=== PATIENT | female | born 1985 | race Caucasian/White ===

== ENCOUNTER 2017-05-09 07:58 | Inpatient (IN) | payer OTHER ==
[2017-05-07 13:27] VITALS: BMI 46.6
[~2017-05-09 07:58] MED LIST: BUPIVACAINE HCL/PF 0.5% (5MG/ML) 10 ML VIAL IJ ONE
[2017-05-09] MEDS ORDERED: DEXAMETHASONE SOD PHOSPHATE/PF 10 MG/ML SDV ONE (09:32)
[2017-05-09] MEDS ORDERED: BUPIVACAINE HCL/PF 0.25% (2.5MG/ML) 10 ML VIAL ONE (09:33)
[2017-05-09] MEDS ORDERED: MIDAZOLAM HCL 2 MG/2 ML SINGLE DOSE VIAL ONE ×2 (09:34)
[2017-05-09 10:19] LABS: HEMATOCRIT 39.1 % (32.4-45.2); HEMOGLOBIN 13.1 GM/dL (10.7-15.3); MCH 29.4 pg (25.7-33.7); MCHC 33.5 g/dl (32.0-36.0); MEAN CELL VOLUME 87.7 fl (80-96); MEAN PLT VOLUME 8.6 fl (7.5-11.1); PLATELET COUNT 296 K/MM3 (134-434); RBC 4.46 M/mm3 (3.60-5.2); WHITE BLOOD COUNT 9.8 K/mm3 (4.0-10.0)
[2017-05-09] MEDS ORDERED: fentaNYL CITRATE 250 MCG/5 ML VIAL ONE (10:20)
[2017-05-09] MEDS ORDERED: ROCURONIUM BROMIDE 50 MG/5 ML VIAL ONE ×2 (10:20)
--- NOTE | 2017-05-09 11:09 | HP ---
Admitting History and Physical - Admission Chief Complaint: Morbid obesity History Source: Patient Limitations to Obtaining History: No Limitations - Past Medical History ...LMP: 04/15/17 ...: ( in mar 2017) - Past Surgical History Past Surgical History: Yes: Cholecystectomy, - Smoking History Smoking history: Current every day smoker Have you smoked in the past 12 months: Yes Aproximately how many cigarettes per day: 3 - Alcohol/Substance Use Hx Alcohol Use: Yes (rarely) Home Medications - Allergies Allergies/Adverse Reactions: Allergies Allergy/AdvReac Type Severity Reaction Status Date / Time No Known Allergies Allergy Verified 05/07/17 13:29 - Home Medications Home Medications: Ambulatory Orders Acetaminophen W/ Codeine #3 [Tylenol # 3 -] 1 tab PO PRN PRN 05/07/17 Alprazolam [Xanax] 0.5 mg PO PRN PRN 05/07/17 Ascorbic Acid [Vitamin C] 500 mg PO DAILY 05/07/17 Quetiapine Fumarate [Seroquel -] 200 mg PO HS 05/07/17 Zolpidem Tartrate [Ambien] 10 mg PO HS 05/07/17 Family Disease History - Family Disease History Family History: Unremarkable Review of Systems - Review of Systems Constitutional: denies: Chills, Fever HENT: reports: No Symptoms Neck: reports: No Symptoms Cardiovascular: reports: No Symptoms Respiratory: reports: No Symptoms Gastrointestinal: reports: No Symptoms Physical Examination Vital Signs: Vital Signs Temperature 98.3 F 05/09/17 08:46 Pulse Rate 92 H 05/09/17 09:37 Respiratory Rate 16 05/09/17 08:46 Blood Pressure 124/71 05/09/17 08:46 O2 Sat by Pulse Oximetry (%) 96 05/09/17 08:42 Constitutional: Yes: Calm Neck: Yes: WNL Cardiovascular: Yes: Regular Rate and Rhythm Respiratory: Yes: Regular Gastrointestinal: Yes: Soft, Abdomen, Obese Neurological: Yes: Alert, Oriented Labs: CBC, BMP 05/09/17 09:58 Problem List - Problems (1) Morbid (severe) obesity due to excess calories Code(s): E66.01 - MORBID (SEVERE) OBESITY DUE TO EXCESS CALORIES (2) Adult BMI 45.0-49.9 kg/sq m Code(s): Z68.42 - BODY MASS INDEX (BMI) 45.0-49.9, ADULT Assessment/Plan Laparoscopic possible open vertical sleeve gastrectomy, possible liver biopsy, EGD
[2017-05-09] MEDS ORDERED: LIDOCAINE HCL/PF 2% SDV 5ML VIAL ONE (11:14)
[2017-05-09] MEDS ORDERED: ceFAZolin SODIUM 1 GM VIAL ONE (11:29)
[2017-05-09] MEDS ORDERED: SODIUM CHLORIDE 0.9% P/F 10 ML VIAL IJ ONE (11:29)
[2017-05-09] MEDS ORDERED: ceFAZolin SODIUM 1 GM VIAL IVPB ONE (11:30)
[2017-05-09] MEDS ORDERED: ONDANSETRON 4 MG/2 ML VIAL IVPUSH PRN (12:36)
[2017-05-09] MEDS ORDERED: PROMETHAZINE HCL 25 MG/1 ML VIAL IVPUSH PRN (12:36)
[2017-05-09] MEDS ORDERED: ACETAMINOPHEN 1000 MG/100 ML VIAL (NON FORMULARY) IVPB ONE (12:37)
[2017-05-09] MEDS ORDERED: LACTATED RINGERS SOLUTION 1,000 ML IV SCH (12:45)
[2017-05-09] MEDS ORDERED: BUPIVACAINE HCL/PF 0.5% (5MG/ML) 10 ML VIAL IJ ONE (12:46)
--- NOTE | 2017-05-09 12:53 | OP ---
Operative Note - Note: Operative Date: 05/09/17 Pre-Operative Diagnosis: Morbid obesity Operation: Laparoscopic vertical sleeve gastrectomy, wedge liver biopsy, EGD Post-Operative Diagnosis: Other (Morbid obesity, Hepatomegaly) Surgeon: Imtiaz Cooper Plastic And Reconstructive Surgeon: Bharat Dykes Anesthesia: General Specimens Removed: Greater curvature of stomach. Wedge liver biopsy Estimated Blood Loss (mls): 30 Drains & Tubes with Location: 36 fr Bougie Operative Report Dictated: Yes
--- NOTE | 2017-05-09 13:14 | SPEC ---
DATE OF OPERATION: 05/09/2017 SURGEON: Imtiaz Cooper MD ALLERGIST/IMMUNOLOGIST: Bharat Dykes MD PREOPERATIVE DIAGNOSIS: 1. Morbid obesity. 2. BMI (body mass index) 46.7. POSTOPERATIVE DIAGNOSIS: 1. Morbid obesity. 2. BMI (body mass index) 46.7. 3. Hepatomegaly. PROCEDURE: 1. Laparoscopic vertical sleeve gastrectomy. 2. Laparoscopic wedge liver biopsy. 3. Esophagogastroduodenoscopy/upper endoscopy. SPECIMEN: 1. Greater curvature of the stomach. 2. Liver biopsy. ESTIMATED BLOOD LOSS: 30 mL. DRAINS: None. ANESTHESIA: GET. Bougie size 36-Irish. INDICATIONS: This is a 32-year-old female who presented to the office for weight loss options. After describing different options, she decided to proceed with a laparoscopic, possible open vertical sleeve gastrectomy, possible liver biopsy, and upper endoscopy. RISKS AND BENEFITS: After describing the different options for weight loss management, the patient decided to proceed with a laparoscopic, possible open vertical sleeve gastrectomy. The patient was seen by the respective subspecialties and cleared for surgery. The risks and benefits of the procedure were explained. These included bleeding, infection, hernia, TX, DVT, PE, injury to surrounding structures including the liver, colon, bowel, spleen, esophagus, vessel injury, nerve injury, weight regain, gastric leak, staple line leak, sleeve leak, obstruction, vitamin deficiency, hair loss and as some of the possible complications. The patient understood and signed informed consent. DESCRIPTION OF PROCEDURE: The patient was placed supine on the operating room table. The patient underwent general endotracheal intubation. A Ortega catheter was inserted. The arms were brought out at 90 degrees and secured. A footboard was placed and the legs were secured laterally with padding. The abdomen was prepped and draped in the usual sterile fashion. A timeout was performed. An incision was made in the left upper quadrant and a Veress needle inserted. Pneumoperitoneum was established. Subsequently, the Veress needle was removed and a 12-mm trocar was placed. The laparoscopic camera was then inserted and inspection of the abdominal cavity was performed. An incision was then made in the supraumbilical area and a 15-mm trocar was placed under direct visualization. A 5-mm trocar was then placed in the right upper quadrant and a 5-mm trocar was placed below the left subcostal margin. A stab wound was made in the subxiphoid area and a Umu clamp inserted and removed to dilate the tract. A Jules liver retractor was inserted. The post was secured at the bedside by the nursing staff. The patient was placed in steep reverse Trendelenburg position and the Jules liver retractor was used to secure the liver towards the anterior abdominal wall. The pylorus was identified and 6 cm proximal to it, the lesser sac was entered using the LigaSure device. All lateral attachments to the greater curvature of the stomach, including the short gastric vessels, were ligated using the LigaSure device toward the gastrosplenic and gastrophrenic ligaments. Once this was done in its entirety, it was confirmed that all tubes within the nasal or oropharyngeal cavity, including a temperature probe, was removed by Anesthesia. The bougie was then inserted by Anesthesia. Transection of the stomach was then begun staying adjacent to the bougie but away from the angularis. Transection of the stomach was performed near the portion of the stomach where the lesser sac was entered. Two laparoscopic Endo-DELFINO black myah were used at this location. Laparoscopic Endo DELFINO purple staple loads were then used for the remainder of the transection until the greater curvature of the stomach was fully transected. This was done staying close to the bougie. Care was taken to stay away from the angle of His cephalad. The staple line was then inspected. Hemostasis was identified. A leak test was then performed. It was clamped distally to the staple line. Irrigation solution was placed in the left upper quadrant and air was insufflated by Anesthesia into the sleeve. No leaks were identified. No obstruction was identified. This was done through the entirety of the staple line. At this point, the irrigation solution was suctioned and again, hemostasis was noted. A wedge liver biopsy was then performed. The left lobe of the liver was identified and a portion of the edge was grasped. Using electrocautery, a wedge of the liver was excised. This was removed and sent off the field as specimen. Hemostasis at the site of the wedge liver biopsy was attained using electrocautery. The 15-mm supraumbilical trocar was then removed and the greater curvature specimen removed from the site using a sponge stick lucas. The specimen was inspected and a Veress needle inserted. The specimen insufflated adequately and no leak was identified. The staple line was noted to be intact. A Merlin-Cora device was then used to temporarily close the fascia with a 0 Vicryl suture at the site. The 15-mm trocar was then reinserted and the 12-mm trocar in the left upper quadrant was removed. The fascia at this site was then closed using the Merlin-Cora device with a 0 Vicryl suture. Again, hemostasis was noted. The Jules liver retractor was then removed under direct visualization. Pneumoperitoneum was desufflated and the fascial sutures were secured. Hemostasis was noted at all incision sites and Marcaine was injected at all incision sites. All incision sites were closed using 4-0 Biosyn. Sterile dressings were applied. In addition, an upper endoscopy was performed at the end of the case. The scope was inserted into the patients mouth. The esophagus, GE junction, gastric staple line and pouch were inspected. Hemostasis was noted. No leak or obstruction was noted. The stomach was suctioned, and the endoscope removed. The patient tolerated the procedure well and was transferred to the recovery room in stable condition with the Ortega catheter intact. The patient was transferred to telemetry for further monitoring. Rosalio [id number]
[2017-05-09] MEDS: METOCLOPRAMIDE HCL INJECTION 10 MG/2 ML VIAL IVPUSH SCH ×2 (13:20→18:03)
[2017-05-09] MEDS: SODIUM CHLORIDE 1,000 ML IV SCH ×2 (13:50→20:41)
[2017-05-09 14:16] LABS: HEMOGLOBIN 12.9 GM/dL (10.7-15.3); MCH 29.1 pg (25.7-33.7); MCHC 33.1 g/dl (32.0-36.0); MEAN CELL VOLUME 87.8 fl (80-96); MEAN PLT VOLUME 8.9 fl (7.5-11.1); PLATELET COUNT 286 K/MM3 (134-434); RBC 4.44 M/mm3 (3.60-5.2); RDW 13.1 % (11.6-15.6); WHITE BLOOD COUNT 18.5 K/mm3 (4.0-10.0)
[2017-05-09] MEDS: ONDANSETRON 4 MG/2 ML VIAL IVPUSH SCH ×3 (14:35→20:38)
[2017-05-09 14:39] LABS: ANION GAP 7 (8-16); BLOOD UREA NITROGEN 6 mg/dL (7-18); CALCIUM 8.6 mg/dL (8.5-10.1); CHLORIDE 103 mmol/L (98-107); CO2 29 mmol/L (21-32); CREATININE 0.6 mg/dL (0.55-1.02); GLUCOSE,RANDOM 141 mg/dL (74-106); POTASSIUM 4.3 mmol/L (3.5-5.1); SGOT/AST 66 U/L (15-37); SODIUM 139 mmol/L (136-145)
[2017-05-09 14:52] LABS: ALK PHOS 73 U/L (45-117); BILIRUBIN,TOTAL 0.5 mg/dL (0.2-1.0); SGPT/ALT 68 U/L (12-78); TOT PROT 6.1 g/dl (6.4-8.2)
[2017-05-09] MEDS: MORPHINE SULFATE 10 MG/1 ML *VIAL IVPUSH PRN ×2 (15:31→19:37)
[2017-05-09] MEDS: ACETAMINOPHEN 1000 MG/100 ML VIAL (NON FORMULARY) IVPB SCH (18:04)
[2017-05-09] MEDS: ENOXAPARIN NA (PORCINE) 40 MG/0.4 ML DISP.SYRIN SQ SCH (21:00)
[2017-05-09] MEDS: FAMOTIDINE 20 MG/50 ML IVPB 20 MG/50 ML MG IVPB SCH (21:01)
[2017-05-10] MEDS: METOCLOPRAMIDE HCL INJECTION 10 MG/2 ML VIAL IVPUSH SCH ×4 (00:01→18:18)
[2017-05-10] MEDS: ONDANSETRON 4 MG/2 ML VIAL IVPUSH SCH ×6 (00:01→21:29)
[2017-05-10] MEDS: ACETAMINOPHEN 1000 MG/100 ML VIAL (NON FORMULARY) IVPB SCH ×2 (06:03)
[2017-05-10 06:40] LABS: HEMATOCRIT 39.6 % (32.4-45.2); HEMOGLOBIN 13.3 GM/dL (10.7-15.3); MCH 29.5 pg (25.7-33.7); MCHC 33.6 g/dl (32.0-36.0); MEAN CELL VOLUME 87.6 fl (80-96); MEAN PLT VOLUME 9.2 fl (7.5-11.1); PLATELET COUNT 324 K/MM3 (134-434); RBC 4.52 M/mm3 (3.60-5.2); RDW 13.4 % (11.6-15.6); WHITE BLOOD COUNT 18.3 K/mm3 (4.0-10.0)
[2017-05-10 07:10] LABS: ANION GAP 9 (8-16); BILIRUBIN,TOTAL 0.5 mg/dL (0.2-1.0); BLOOD UREA NITROGEN 7 mg/dL (7-18); CALCIUM 8.4 mg/dL (8.5-10.1); CHLORIDE 102 mmol/L (98-107); CO2 27 mmol/L (21-32); CREATININE 0.6 mg/dL (0.55-1.02); GLUCOSE,RANDOM 113 mg/dL (74-106); POTASSIUM 4.8 mmol/L (3.5-5.1); SGOT/AST 69 U/L (15-37); SGPT/ALT 73 U/L (12-78); SODIUM 138 mmol/L (136-145)
[2017-05-10 07:11] LABS: ALK PHOS 75 U/L (45-117); TOT PROT 6.5 g/dl (6.4-8.2)
[2017-05-10] MEDS: ENOXAPARIN NA (PORCINE) 40 MG/0.4 ML DISP.SYRIN SQ SCH ×2 (10:01→21:29)
[2017-05-10] MEDS: FAMOTIDINE 20 MG/50 ML IVPB 20 MG/50 ML MG IVPB SCH ×2 (10:01→23:15)
[2017-05-10] MEDS: MORPHINE SULFATE 10 MG/1 ML *VIAL IVPUSH PRN ×3 (10:18→20:35)
[2017-05-10] MEDS: SODIUM CHLORIDE 1,000 ML IV SCH ×3 (13:10→20:37)
--- NOTE | 2017-05-10 14:13 | PATH ---
Surgical Pathology Report Patient Name: LUCINDA NEAL [facility]. Rec. #: [id number] /Age/Gender: 1985 (Age: 32) / F Account: [id number] Location: 4 W TELEMETRY U Taken: 05/09/2017 Received: 05/09/2017 Reported: 05/10/2017 Physicians: Imtiaz Cooper M.D. Specimen(s) Received A: GREATER CURVATURE STOMACH B: LIVER BIOPSY Clinical History Morbid obesity Final Diagnosis A. STOMACH, GREATER CURVATURE, SLEEVE GASTRECTOMY: MILD TO MODERATE CHRONIC GASTRITIS. IMMUNOSTAIN FOR H. PYLORI IS POSITIVE (FEW TO MODERATE NUMBER OF ORGANISMS). B. LIVER, WEDGE BIOPSY: MILD MACROVESICULAR STEATOSIS. MILD NONSPECIFIC PORTAL CHRONIC INFLAMMATION IS PRESENT. TRICHROME STAIN HIGHLIGHTS AREAS OF PORTAL FIBROSIS. IRON STAIN IS NEGATIVE FOR SIDEROSIS. Comment: Recommend correlation with clinical findings and follow up as clinically indicated. Electronically Signed Delvin Burris M.D. Gross Description A. Received in formalin, labeled "greater curvature stomach," is a 114 gram, 19.0 x 3.8 x 3.0 cm. portion of stomach with a stapled margin of resection. The serosa is jones-go with minimal attached fat. The mucosa is jones-red with focally flattened folds No mucosal masses are identified. Museum Exhibit Designer sections are submitted in one cassette. B. Received in formalin labeled "liver biopsy," is a 3.8 x 2.0 x 1.8 cm friable portion of liver tissue. Museum Exhibit Designer sections are submitted in one cassette. DL/05/09/2017 saudi/05/09/2017
[2017-05-10] MEDS ORDERED: oxyCODONE HCL 5 MG TABLET PO PRN (15:44)
--- NOTE | 2017-05-10 15:46 | PN ---
Progress Note (short form) - Note Progress Note: POD 1 Pain controlled No nausea Vital Signs Period Temp Pulse Resp BP Sys/Gonzales Pulse Ox Last 24 Hr 98.0 F-99.0 F 90-120 18-20 130-140/75-83 96-97 Abd soft CBC, BMP 05/10/17 06:15 05/10/17 06:15 UGI: no leak/obstruction Clears Ambulate Problem List - Problems (1) Morbid (severe) obesity due to excess calories Code(s): E66.01 - MORBID (SEVERE) OBESITY DUE TO EXCESS CALORIES (2) Adult BMI 45.0-49.9 kg/sq m Code(s): Z68.42 - BODY MASS INDEX (BMI) 45.0-49.9, ADULT
--- NOTE | 2017-05-10 16:26 | PN ---
Progress Note (short form) - Note Progress Note: POD #1 - s/p gastric sleeve. Pt. doing well, sitting at side of bed comfortably. No complaints. No apparent anesthetic complications noted. Continue current care.
[2017-05-11] MEDS: ONDANSETRON 4 MG/2 ML VIAL IVPUSH SCH ×4 (00:22→13:10)
[2017-05-11] MEDS: METOCLOPRAMIDE HCL INJECTION 10 MG/2 ML VIAL IVPUSH SCH ×3 (00:22→13:10)
[2017-05-11] MEDS: MORPHINE SULFATE 10 MG/1 ML *VIAL IVPUSH PRN ×3 (02:05→11:10)
[2017-05-11 07:18] VITALS: BP 139/85; PULSE 89; TEMP 98.8
[2017-05-11] MEDS: ENOXAPARIN NA (PORCINE) 40 MG/0.4 ML DISP.SYRIN SQ SCH (09:19)
[2017-05-11] MEDS: FAMOTIDINE 20 MG/50 ML IVPB 20 MG/50 ML MG IVPB SCH (09:23)
== END 2017-05-11 13:13 | disposition home or self-care (01) | DRG 403 ==
LOC: JSAMEDAYSX 07:58 → EDSTATUS 08:00 → J4W 15:15
PROVIDERS: ADMIT Surgery; ATTEND Surgery
PROC: 0DB64Z3 Excision of Stomach, Percutaneous Endoscopic Approach, Vertical (ICD-10-PCS; principal; 2017-05-09 11:00)
PROC: 0FB24ZX Excision of Left Lobe Liver, Percutaneous Endoscopic Approach, Diagnostic (ICD-10-PCS; 2017-05-09 11:00)
PROC: 0DJ08ZZ Inspection of Upper Intestinal Tract, Via Natural or Artificial Opening Endoscopic (ICD-10-PCS; 2017-05-09 11:00)
DX: E66.01 Morbid (severe) obesity due to excess calories (principal); Z68.42 Body mass index [BMI] 45.0-49.9, adult; R16.0 Hepatomegaly, not elsewhere classified; F17.210 Nicotine dependence, cigarettes, uncomplicated
CPT/HCPCS: 36415; 74241-TC-FY; 80053; 84703; 85027; 86850; 86900; 86901; 88305-TC; 88307-TC; 94010; 94760; J0131; J7030

== ENCOUNTER 2018-03-18 18:46 | Emergency (ER) | payer OTHER ==
[2018-03-18 19:01] VITALS: BP 127/84; PULSE 97; TEMP 98.4; BMI 37.5
--- NOTE | 2018-03-18 19:02 | PDOC ---
Rapid Medical Evaluation Chief Complaint: Pain Time Seen by Provider: 03/18/18 18:57 Medical Evaluation: Allergies Allergy/AdvReac Type Severity Reaction Status Date / Time ketorolac [From Toradol] Allergy Verified 03/18/18 18:57 03/18/18 18:57 I have performed a brief in-person evaluation of this patient. The patient presents with a chief complaint of: LLQ abdominal pain with 2 days of burning/pain on urination. (+)subjective fever at home yesterday, nausea, (+) 1 episode of NBNB vomiting today, no diarrhea, no constipation. no vaginal discharge. Does not think she is , has an IUD in place I have ordered the following: UCG, UA The patient will proceed to the ED for further evaluation. 03/18/18 19:03 Discharge Disposition - Diagnosis Abdominal pain Qualifiers: Abdominal location: unspecified location Qualified Code(s): R10.9 - Unspecified abdominal pain - Referrals - Patient Instructions - Post Discharge Activity
[2018-03-18 20:01] LABS: URINE APPEARANCE CLOUDY; URINE BILIRUBIN NEGATIVE (<2.0 mg/dL); URINE COLOR YELLOW; URINE GLUCOSE (UA) NEGATIVE (NEGATIVE); URINE KETONE NEGATIVE (NEGATIVE); URINE LEUK ESTERASE 2+ (NEGATIVE); URINE NITRITE POSITIVE (NEGATIVE); URINE PROTEIN 1+ (NEGATIVE)
[2018-03-18 20:03] LABS: HCG,QUALITATIVE URINE Negative
[2018-03-18 20:11] LABS: EPI CELLS MANY /HPF (FEW); URINE BACTERIA RARE /hpf (NONE SEEN); URINE MUCUS RARE
--- NOTE | 2018-03-18 20:17 | PDOC ---
History of Present Illness - General Chief Complaint: Pain Stated Complaint: PAIN Time Seen by Provider: 03/18/18 18:57 - History of Present Illness Initial Comments: 03/18/18 20:15 33-year-old female with dysuria 3 days no systemic symptoms Past History - Past Medical History Allergies/Adverse Reactions: Allergies Allergy/AdvReac Type Severity Reaction Status Date / Time ketorolac [From Toradol] Allergy Verified 03/18/18 18:57 Home Medications: Ambulatory Orders Acetaminophen W/ Codeine #3 [Tylenol # 3 -] 1 tab PO PRN PRN 05/07/17 Alprazolam [Xanax] 0.5 mg PO PRN PRN 05/07/17 Ascorbic Acid [Vitamin C] 500 mg PO DAILY 05/07/17 Quetiapine Fumarate [Seroquel -] 200 mg PO HS 05/07/17 Famotidine [Pepcid] 20 mg PO BID #60 tablet 05/09/17 Oxycodone HCl/Acetaminophen [Percocet 5-325 mg Tablet] 1 - 2 tab PO Q6H #28 tab MDD 4 05/09/17 Nitrofurantoin Monohyd/M-Cryst [Macrobid -] 100 mg PO BID #14 capsule 03/18/18 Anemia: No Asthma: No Cancer: No Cardiac Disorders: No CVA: No COPD: No CHF: No Dementia: No Diabetes: No GI Disorders: Yes (heartburn) Disorders: No HTN: No Hypercholesterolemia: No Liver Disease: No Seizures: No Thyroid Disease: No - Surgical History Cholecystectomy: Yes (2014) Orthopedic Surgery: (foot surgery 1996) - Immunization History Immunization Up to Date: Yes - Suicide/Smoking/Psychosocial Hx Smoking Status: Yes Smoking History: Current every day smoker Have you smoked in the past 12 months: Yes Number of Cigarettes Smoked Daily: 4 Information on smoking cessation initiated: No 'Breaking Loose' booklet given: 05/09/17 Hx Alcohol Use: No Drug/Substance Use Hx: No Substance Use Type: Alcohol Hx Substance Use Treatment: No Review of Systems - Review of Systems : Yes: Dysuria *Physical Exam - Vital Signs Last Vital Signs Temp Pulse Resp BP Pulse Ox 98.4 F 97 H 18 127/84 98 03/18/18 18:57 03/18/18 18:57 03/18/18 18:57 03/18/18 18:57 03/18/18 18:57 - Physical Exam Comments: 03/18/18 20:16 HEAD: NC/AT EYES: Conjuntiva clear MS: Full ROM in all joints without edema NEUROLOGIC: No gross sensory or motor deficits, NVID SKIN: Normal color and temperature no lesions or rashes Moderate Sedation - Procedure Monitoring Vital Signs: Procedure Monitoring Vital Signs Temperature 98.4 F 03/18/18 18:57 Pulse Rate 97 H 03/18/18 18:57 Respiratory Rate 18 03/18/18 18:57 Blood Pressure 127/84 03/18/18 18:57 O2 Sat by Pulse Oximetry (%) 98 03/18/18 18:57 ED Treatment Course - ADDITIONAL ORDERS Additional order review: Laboratory Results 03/18/18 19:25 Urine Color Yellow Urine Appearance Cloudy Urine pH 5.0 Ur Specific Mcgrew 1.026 Urine Protein 1+ H Urine Glucose (UA) Negative Urine Ketones Negative Urine Blood Negative Urine Nitrite Positive Urine Bilirubin Negative Urine Urobilinogen 2.0 H Ur Leukocyte Esterase 2+ H Urine WBC (Auto) 70 Urine RBC (Auto) 8 Ur Epithelial Cells Many Urine Bacteria Rare Urine Mucus Rare Urine HCG, Qual Negative *DC/Admit/Observation/Transfer Diagnosis at time of Disposition: UTI (urinary tract infection) Diagnosis at time of Disposition: (Ruled Out): Abdominal pain - Discharge Dispostion Disposition: HOME Condition at time of disposition: Stable Decision to Admit order: No - Prescriptions Prescriptions: Nitrofurantoin Monohyd/M-Cryst [Macrobid -] 100 mg PO BID #14 capsule - Referrals Referrals: Daniel Malave MD [Primary Care Provider] - - Patient Instructions Printed Discharge Instructions: Urinary Tract Infection Additional Instructions: Please take the antibiotics as directed. Return to the emergency room should symptoms worsen or go unresolved. Follow-up with your primary care provider in one to 2 days for further evaluation and treatment options. - Post Discharge Activity
== END 2018-03-18 20:20 | disposition home or self-care (01) ==
LOC: JERFT 18:46
DX: N39.0 Urinary tract infection, site not specified (principal)
CPT/HCPCS: 81003; 81015; 84703; 87086; 87186; 99281-25

== ENCOUNTER 2020-03-28 12:14 | Emergency (ER) | payer OTHER ==
[2020-03-28 12:25] VITALS: BP 117/64; PULSE 94; TEMP 98.1; BMI 32.8
[2020-03-28 13:45] LABS: HCG,QUALITATIVE URINE Negative
[2020-03-28 13:48] LABS: EPI CELLS 19 /uL (0-25.1); HYALINE CASTS 4 /uL (0-3.1); PH,URINE 7.5 (5.0-8.0); URINE APPEARANCE TURBID; URINE BACTERIA 7762 /uL (0-1359); URINE BILIRUBIN NEGATIVE (NEGATIVE); URINE COLOR RED; URINE GLUCOSE (UA) NEGATIVE (NEGATIVE); URINE KETONE NEGATIVE (NEGATIVE); URINE LEUK ESTERASE 1+ (NEGATIVE); URINE NITRITE NEGATIVE (NEGATIVE); URINE PROTEIN 2+ (NEGATIVE); URINE RBC 9 /uL (0-23.9); URINE WBC 166 /uL (0-25.8)
== END 2020-03-28 17:00 | disposition home or self-care (01) ==
LOC: JER 12:14
DX: O20.0 Threatened abortion (principal)
CPT/HCPCS: 36415; 76817-TC; 81003; 84702; 84703; 86850; 86900; 86901; 87086; 87186; 99284-25